=== PATIENT | female | born 1990 | race Caucasian/White ===

== ENCOUNTER 2022-03-09 11:47 | Emergency (ER) | payer SELFPAY ==
[~2022-03-09] VITALS: Ht 160 cm; Wt 47.0 kg
[2022-03-09] MEDS: IV NORMAL SALINE 1,000ML 1,000 ML IV SCH ×2 (12:30→13:14)
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
[2022-03-09 12:38] LABS: BASO # 0.1 x10^3/uL (0.0-0.2); BASO % 1 % (0-3); EOS # 0.5 x10^3/uL (0.0-0.7); EOS % 5 % (0-3); HEMATOCRIT 31.4 % (36.0-47.0); HEMOGLOBIN 10.1 g/dL (12.0-15.5); LYMPH # 3.3 x10^3/uL (1.0-4.8); LYMPH % 34 % (24-48); MEAN CORPUSCULAR HEMOGLOBIN 28 pg (25-35); MEAN CORPUSCULAR HGB CONC 32 g/dL (31-37); MEAN CORPUSCULAR VOLUME 87 fL (79-100); MONO # 0.8 x10^3/uL (0.0-1.1); MONO % 8 % (0-9); NEUT % 52 % (31-73); PLATELET COUNT 434 x10^3/uL (140-400); RED BLOOD COUNT 3.62 x10^6/uL (3.50-5.40); RED CELL DISTRIBUTION WIDTH 16.9 % (11.5-14.5); WHITE BLOOD COUNT 9.7 x10^3/uL (4.0-11.0)
[2022-03-09 12:41] LABS: CALCIUM 9.8 mg/dL (8.5-10.1); CREATININE 2.5 mg/dL (0.6-1.0); GFR 22.5; POTASSIUM 4.6 mmol/L (3.5-5.1)
[2022-03-09 12:47] LABS: ALBUMIN 1.8 g/dL (3.4-5.0); ALBUMIN/GLOBULIN RATIO 0.4 (1.0-1.7); TOTAL BILIRUBIN 0.2 mg/dL (0.2-1.0); TOTAL PROTEIN 6.7 g/dL (6.4-8.2)
[2022-03-09 12:55] VITALS: BP 112/70
[2022-03-09 15:32] LABS: CLARITY,URINE CLEAR; COLOR,URINE YELLOW; GLUCOSE,URINE 100 mg/dL (NEG)
[2022-03-09 15:33] LABS: AMORPHOUS SEDIMENT,UR PRESENT /HPF; BACTERIA,URINE 0 /HPF (0-FEW); NITRITE,URINE NEG (NEG); RBC,URINE 0 /HPF (0-2); SQUAMOUS EPITHELIAL CELL,UR OCC /LPF; UROBILINOGEN,URINE 0.2 mg/dL (0.2 mg/dL); WBC,URINE 0 /HPF (0-4)
== END 2022-03-09 16:30 ==
LOC: ER 11:47
DX: E10.649 Type 1 diabetes mellitus with hypoglycemia without coma (principal); Z88.5 Allergy status to narcotic agent
CPT/HCPCS: 36415; 80053; 81001; 82947; 85025; 96360; 96361; 99283; J7030